=== PATIENT | male | born 1965 | race Caucasian/White ===

== ENCOUNTER 2020-12-10 13:07 | Outpatient (REF) | payer MEDICAID, SELFPAY ==
--- NOTE | ~2020-12-10 | US_ITS ---
EXAMINATION: ULTRASOUND EXTREMITY NONVASCULAR CLINICAL INFORMATION: Right lower quadrant pain. Assess inguinal canal hernia. COMPARISON: None TECHNIQUE: Grayscale and color imaging of the right inguinal region using a linear transducer. Valsalva maneuver was performed. FINDINGS: No hernia is seen. There is a small right inguinal lymph node. This is normal in size and demonstrates normal ultrasound morphology and flow. US/US extremity nonvascular IMPRESSION: No hernia seen
== END 2020-12-10 13:08 | disposition home or self-care (01) ==
LOC: HO.US 13:07
PROVIDERS: Visit Provider Emergency Medicine
DX: R10.31 Right lower quadrant pain (principal)
CPT/HCPCS: 76882

== ENCOUNTER 2023-04-12 12:42 | Outpatient (REF) | payer MEDICAID, SELFPAY ==
--- NOTE | ~2023-04-12 | XR_ITS ---
EXAMINATION: XR LUMBOSACRAL SPINE CLINICAL INFORMATION: Right leg pain COMPARISON: None available. TECHNIQUE: Three views of the lumbosacral spine. FINDINGS: Bone alignment is normal. No fracture or dislocation spaces are normal. Mild degenerative spondylosis at L3, L4-L5 and L5-S1. Mild lower lumbar spine facet arthritis. Atherosclerotic disease. XR/XR lumbar spine 2-3V IMPRESSION: Mild degenerative changes.
== END 2023-04-12 12:43 | disposition home or self-care (01) ==
LOC: HO.HHCX 12:42
PROVIDERS: Visit Provider Internal Medicine
DX: G57.01 Lesion of sciatic nerve, right lower limb (principal)
CPT/HCPCS: 72100

== ENCOUNTER 2023-05-05 09:06 | Outpatient (REF) | payer MEDICAID, SELFPAY ==
[2023-05-05 15:25] LABS: Alanine Aminotransferase 48 U/L (0-40); Albumin Level 4.5 g/dL (3.5-5.0); Alkaline Phosphatase 76 U/L (39-117); Anion Gap 12 (12-20); Aspartate Amino Transferase 30 U/L (5-37); Bilirubin Direct 0.2 mg/dL (0.0-0.5); Bilirubin Total 0.4 mg/dL (0.0-1.0); Blood Urea Nitrogen 14 mg/dL (9-16); Calcium 9.7 mg/dL (8.4-10.2); Carbon Dioxide 30 mmol/L (22-29); Chloride 107 mmol/L (96-108); Cholesterol 197 mg/dL (<200); Estimated Glomerular Filt Rate > 60; Glucose Fasting 98 mg/dL (60-99); HDL Cholesterol 36 mg/dL (>40); LDL Cholesterol Calculated 121 mg/dL (<100); Potassium 4.5 mmol/L (3.3-5.1); Sodium 144 mmol/L (135-145); Total Protein 7.6 g/dL (6.5-8.0); Triglycerides 202 mg/dL (<150)
[2023-05-05 15:27] LABS: Estimated Average Glucose 117 mg/dL; Hemoglobin A1c % 5.7 % (<6.0)
[2023-05-05 15:42] LABS: TSH reflex Free T4 1.16 uIU/mL (0.32-4.0)
== END 2023-05-05 09:07 | disposition home or self-care (01) ==
LOC: HO.CHCLDS 09:06
PROVIDERS: Visit Provider Internal Medicine
DX: R79.89 Other specified abnormal findings of blood chemistry (principal); R73.01 Impaired fasting glucose
CPT/HCPCS: 36415; 80048; 80061; 80076; 83036; 84443

== ENCOUNTER 2023-05-20 08:02 | Outpatient (REF) | payer MEDICAID, SELFPAY ==
--- NOTE | ~2023-05-20 | US_ITS ---
EXAMINATION: US ABDOMEN COMPLETE CLINICAL INFORMATION: Elevated LFTs. COMPARISON: CT abdomen and pelvis 04/20/2022. Ultrasound abdomen complete 04/06/2022. TECHNIQUE: Real-time imaging of the abdominal viscera. FINDINGS: PANCREAS: Normal. ABDOMINAL AORTA: The proximal, mid, and distal segments are normal in caliber. INFERIOR VENA CAVA: Visualized portions are normal. LIVER: Diffuse increased echogenicity to the liver parenchyma. No focal hepatic lesion. There is no intrahepatic biliary duct dilatation seen. GALLBLADDER: Multiple small nonmobile, nonshadowing gallbladder wall echogenicities. The gallbladder is physiologically distended containing fold. No evidence of stones, sludge, or pericholecystic fluid. Gallbladder wall measures 4 mm. COMMON BILE DUCT: Normal in caliber measuring 0.4 cm in diameter. RIGHT KIDNEY: Normal. No hydronephrosis. No renal calculi or focal parenchymal lesions. The kidney measures 10.4 cm in maximum dimension. LEFT KIDNEY: Normal. No hydronephrosis. No renal calculi or focal parenchymal lesions. The kidney measures 10.2 cm in maximum dimension. SPLEEN: Normal. The spleen measures 10.4 cm in maximum dimension. FREE FLUID: None. US/US abdomen complete IMPRESSION: Hepatic steatosis. Small gallbladder polyps.
== END 2023-05-20 08:03 | disposition home or self-care (01) ==
LOC: HO.HMGCX 08:02
PROVIDERS: PCP Internal Medicine; Visit Provider Internal Medicine
DX: R79.89 Other specified abnormal findings of blood chemistry (principal)
CPT/HCPCS: 76700

== ENCOUNTER 2024-01-25 11:23 | Outpatient (REF) | payer MEDICAID, SELFPAY ==
[2024-01-25 14:10] LABS: Appearance Urine Clear; Color Urine Yellow; Glucose Urine UA Negative (Negative); Leukocyte Esterase Urine Negative (Negative); Nitrite Urine Negative (Negative); Urine Blood Negative (Negative); Urine Ketones Negative (Negative); Urine Protein Negative (Neg-Trace)
[2024-01-25 14:17] LABS: Bacteria Urine None Seen (None Seen); Hyaline Casts Urine 0-2 /LPF (0-2); RBC Urine 0-2 /HPF (0-2); Squamous Epithelial Cell Urine 0-2 /HPF (0-2); WBC Urine 0-5 /HPF (0-5)
== END 2024-01-25 11:24 | disposition home or self-care (01) ==
LOC: HO.CHCLDS 11:23
PROVIDERS: Visit Provider Internal Medicine
DX: G57.01 Lesion of sciatic nerve, right lower limb (principal)
CPT/HCPCS: 81001

== ENCOUNTER 2024-02-03 08:12 | Outpatient (REF) | payer MEDICAID, SELFPAY ==
--- NOTE | ~2024-02-03 | US_ITS ---
EXAMINATION: US ABDOMEN COMPLETE CLINICAL INFORMATION: History of gallbladder polyp and hepatic steatosis. COMPARISON: None available. TECHNIQUE: Real-time imaging of the abdominal viscera. FINDINGS: PANCREAS: Normal. ABDOMINAL AORTA: Aortic atherosclerotic calcifications. INFERIOR VENA CAVA: Visualized portions are normal. LIVER: Normal. The liver is normal in size. The liver contour is normal. Parenchymal echogenicity is normal. No focal hepatic lesion. There is no intrahepatic biliary duct dilatation seen. GALLBLADDER: The gallbladder is physiologically distended without evidence of stones, sludge, wall thickening or pericholecystic fluid. Gallbladder polyps are seen measuring up to 2 mm. COMMON BILE DUCT: Normal in caliber measuring 0.4 cm in diameter. RIGHT KIDNEY: Normal. No hydronephrosis. No renal calculi or focal parenchymal lesions. The kidney measures 10.5 cm in maximum dimension. LEFT KIDNEY: Normal. No hydronephrosis. No renal calculi or focal parenchymal lesions. The kidney measures 10.7 cm in maximum dimension. SPLEEN: Normal. The spleen measures 10.5 cm in maximum dimension. FREE FLUID: None. US/US abdomen complete IMPRESSION: Gallbladder polyps measuring up to 2 mm. If patient has symptoms attributable to the gallbladder, cholecystectomy is suggested if there are no alternative causes for the symptoms and the patient is fit for and accepts surgery. If patient has no symptoms and risk factors are present or patient is symptomatic and cholecystectomy is deemed not appropriate, follow-up. Electronically signed by: Jasmyn Yañez MD 02/24/2024 01:49 PM EDT
--- NOTE | ~2024-02-03 | XR_ITS ---
EXAMINATION: XR ABDOMEN KUB CLINICAL INDICATION: Abdominal pain COMPARISON: None available. TECHNIQUE: AP view of the abdomen. FINDINGS: The bowel gas pattern is normal with no evidence of ileus or obstruction. No unusual soft tissue calcifications are noted. The bones are unremarkable. XR/XR KUB IMPRESSION: Unremarkable examination. Electronically signed by: Jasmyn Yañez MD 02/29/2024 07:55 PM EDT RP
== END 2024-02-03 08:13 | disposition home or self-care (01) ==
LOC: HO.US 08:12
PROVIDERS: PCP Internal Medicine; Visit Provider Internal Medicine
DX: K76.0 Fatty (change of) liver, not elsewhere classified (principal); K82.4 Cholesterolosis of gallbladder; R10.12 Left upper quadrant pain
CPT/HCPCS: 74018; 76700

== ENCOUNTER 2024-03-08 09:06 | Outpatient (REF) | payer MEDICAID, SELFPAY ==
[2024-03-08 14:13] LABS: MANUAL DIFF FLAG NO
[2024-03-08 14:33] LABS: Basophils Percent Auto 0.5 % (0-2); Eosinophils Absolute Auto 0.1 X10*3/uL (0.0-0.4); Eosinophils Percent Auto 2.1 % (0-4); Hematocrit 41.4 % (42.0-52.0); Hemoglobin 14.4 g/dl (14.0-18.0); Lymphocytes Absolute Auto 1.9 X10*3/uL (1.2-4.9); Lymphocytes Percent Auto 44.2 % (20-40); Mean Corpuscular HGB Conc 34.8 g/dl (31.0-36.0); Mean Corpuscular Volume 89.2 fL (80.0-98.0); Mean Platelet Volume 9.2 fL (9.4-12.4); Monocytes Absolute Auto 0.3 X10*3/uL (0.1-1.2); Monocytes Percent Auto 7.9 % (2-11); Neutrophils Absolute Auto 1.9 x10*3/uL (2.0-8.3); Neutrophils Percent Auto 45.3 % (45-73); Platelet Count 308 X10*3/uL (160-400); Red Blood Count 4.64 X10*6/uL (4.60-5.80); Red Cell Distribution Width 13.1 % (11.0-16.0); White Blood Count 4.2 X10*3/uL (4.8-10.8)
[2024-03-08 15:01] LABS: TSH reflex Free T4 1.27 uIU/mL (0.32-4.0)
[2024-03-08 15:04] LABS: C Reactive Protein < 0.10 mg/dL (< or = 0.50)
[2024-03-08 15:05] LABS: Erythrocyte Sedimentation Rate 2 MM/HR (0-15)
[2024-03-10 16:58] LABS: Immunoglobulin A 168 mg/dL (47-310); Transglutaminase IgA <1.0 U/mL
== END 2024-03-08 09:07 | disposition home or self-care (01) ==
LOC: HO.CHCLDS 09:06
PROVIDERS: Visit Provider Internal Medicine
DX: R63.4 Abnormal weight loss (principal)
CPT/HCPCS: 36415; 82784; 84443; 85025; 85652; 86140; 86364

== ENCOUNTER 2024-03-15 09:02 | Outpatient (REF) | payer MEDICAID, SELFPAY | END 2024-03-15 09:03 | disposition home or self-care (01) | LOC: HO.CHCLNP 09:02 | PROVIDERS: Visit Provider Internal Medicine | DX: R63.4 Abnormal weight loss (principal) | CPT/HCPCS: 87338 ==

== ENCOUNTER 2025-03-13 15:54 | Outpatient (REF) | payer MEDICAID, SELFPAY ==
--- OUTSIDE RECORDS SUMMARY | 2025-03-13 15:15 | XMS_ITS | Encounter Summary ---
Author Organization [employer] Address [address] [facility] 7[address] [place] [address] Care Team Providers Care Cage Cashier Name Role Phone Saurav Kay MD Primary Care Provider [phone]- [phone] Reason for Referral * Imaging (Routine) - Authorized Specialty Diagnoses / Procedures Referred By Contjerson peters Referred To Contact Radiology Diagnoses Gallbladder polyp RUQ pain Procedures US Abdomen Complete Jayden Hwang CNP [address] [place] [address] Phone: tel: fax: [address] Phone: tel: fax: Referral ID Status Reason Start Date Expiration Date V isits Requested Visits Authorized [id number] Authorized 03/13/2025 03/13/2026 1 1 Encounter Details Date Type Department Care Team (Late st Contact Info) Description 03/13/2025 3:15 PM EDT Office Visit [facility] MED & PEDS [address] [place] [address] Jayden Hwang CNP [address] [place] [address] Gallbladder polyp (Primary Dx); RUQ pain Social History Tobacco Use Types Packs/Day Years Used Date Smoking Tobacco: Never Passive Smoke Exposure: Never Smokeless Tobacco: Never Depression Answer Date Recorded Patient Health Questionnaire-9 Score 4 08/15/2024 Patient Health Questionnaire-9 Score 4 08/15/2024 Last PHQ-9: Questionnaire Data Not on file 0 08/15/2024 Housing Stability Answer Date Recorded What is your housing situation today? I have paul altamirano 08/15/[address] you li ve. Do you have problems with any of the following? None of the above 08/15/2024 Food Insecurity Answer Date Recorded Within the past 12 months, y ou worried that your food would run out before you got money to buy more: Never True 08/15/2024 Within the past 12 months,th e food you bought just didn't last and you didn't have enough money to get more: Never True Transportation Answer Date Recorded In the past 12 months, has l ack of transportation kept you from medical appts, meetings, work or from getting things needed for daily living? No 08/15/2024 Utilities Answer Date Recorded In the past 12 months, has t he electric, gas, oil or water company threatened to shut off services in your home? No 08/15/2024 Depression Answer Date Recorded Patient Health Questionnaire-2 Score 2 08/15/2024 Internet Access Answer Date Recorded Internet Access Q1 Yes 08/15/2024 Internet Access Q2 Not on file 08/15/2024 Sex and Gender Information Value Date Recorded Sex Assigned at Male 04/20/2022 10:22 AM EDT Legal Sex Male 10:22 AM EDT Gender Identity Choose not to disclose 10:22 AM EDT Sexual Orientation Choose not to disclose 2021 10:22 AM EDT documented as of this encounter Last Filed Vital Signs Vital Sign Reading Time Taken Comments Blood Pressure 136/84 03/13/2025 3:20 PM EDT Pulse 70 03/13/2025 3:20 PM EDT Temperature 36.7 C (98.1 F) 03/13/2025 3:20 PM EDT Respiratory Rate 14 03/13/2025 3:20 PM EDT Oxygen Saturation 99% 03/13/2025 3:20 PM EDT Inhaled Oxygen Concentration - - Weight 71.7 kg (158 lb) 03/13/2025 3:20 PM EDT Height 167.6 cm (5' 6 ) 03/13/2025 3:20 PM EDT Body Mass Index 25.5 03/13/2025 3:20 PM EDT documented in this encounter Progress Notes * Jayden Hwang CNP - 03/13/2025 3:15 PM EDT Hugh Valiente is a 60 y.o. adult who presents for a acute visit. HPI - Ongoing stomach pain, mainly in right upper quadrant, sometimes radiates from left to middle - Pain occurs if waiting 2-3 hours after breakfast to eat - Diarrhea present - History of polyps on gallbladder - History of fatty liver - Pain sometimes triggered by greasy or fatty foods - Denies bleeding with bowel movements - denies seeing GI for consult - Colonoscopy performed last year, result normal Interim History Pt JOSE 10/2024 with PCP pt diagnosed with polyp on gall bladder about 0.3 x0.2 x0.2 cm in size. Per PCP note plan to repeat US in 6 months. Pt was evaluated by [facility] general surgery 02/2024 in which they repeated US and referred pt to GI. Last colonoscopy 09/2024 which showed small internal hemorrhoids otherwise normal. Recommended 5 year f/u. Recent labs include neg celiac panel, neg H. Pylori 02/2024. Problem List[1] Allergies[2] Review of Systems Constitutional: Negative for chills, fatigue, fever and unexpected weight change. Gastrointestinal: Positive for abdominal pain and diarrhea. Negative for abdominal distention, analbleeding, blood in stool, constipation, nausea, rectal pain and vomiting. Genitourinary: Negative. Neurological: Negative for dizziness, tremors, seizures, syncope, facial asymmetry, speech difficulty, weakness, light-headedness, numbness and headaches. Vitals: 03/13/25 1520 BP: 136/84 BP Location: Left arm Patient Position: Sitting BP Cuff Size: Adult Pulse: 70 Resp: 14 Temp: 98.1 ??F (36.7 ??C) TempSrc: Oral SpO2: 99% Weight: 158 lb (71.7 kg) Height: 5' 6 (1.676 m) Physical Exam Constitutional: Appearance: Normal appearance. HENT: Head: Normocephalic and atraumatic. Cardiovascular: Rate and Rhythm: Normal rate and regular rhythm. Pulmonary: Effort: Pulmonary effort is normal. Breath sounds: Normal breath sounds. Abdominal: General: There is no distension. Palpations: There is no mass. Tenderness: There is no abdominal tenderness. There is no guarding or rebound. Hernia: No hernia is present. Neurological: Mental Status: Hugh is alert. Psychiatric: Mood and Affect: Mood normal. Behavior: Behavior normal. Problem List Items Addressed This Visit Gallbladder polyp - Primary Relevant Orders Comprehensive Metabolic Panel CBC auto differential Lipase US Abdomen Complete Other Visit Diagnoses RUQ pain Relevant Orders Comprehensive Metabolic Panel CBC auto differential Lipase US Abdomen Complete Assessment -benign abdominal exam - Gallbladder dysfunction - Fatty liver (hepatic steatosis) Plan - Repeat the ultrasound to evaluate any changes in the gallbladder polyps. - Order blood work to assess for infections, liver enzymes, and pancreas function. Complete the labwork today; fasting is not required. - Schedule the ultrasound appointment; the facility will contact to arrange this. - Call the patient with the results of the blood work and ultrasound to determine if further actionis needed. - Consider referral to a electrode cleaner if the ultrasound results indicate growth or other concerns with the gallbladder polyps. - Advise dietary modifications to include less greasy and less fatty foods to help alleviate symptoms. 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 as directed, Disp: 30 tablet, Rfl: 11 hydrOXYzine pamoate (Vistaril) 25 MG capsule, Take 1 capsule (25 mg) by mouth every 6 (six) hours if needed for itching. 1 to 2 capsule at bedtime., Disp: 40 capsule, Rfl: 2 sildenafil (Viagra) 25 MG tablet, Take 1 tablet (25 mg) by mouth if needed each day for erectile dysfunction., Disp: 10 tablet, Rfl: 0 documented in this encounter Plan of Treatment Upcoming Encounters Date Type Department Care Team (Late st Contact Info) Description 05/21/2025 9:00 AM EST Office Visit [facility] CHC MED & PEDS [address] [place] [address] Saurav Kay MD [address] [place] [address] Scheduled Orders Name Type Priority Associated Diagnoses Orde r Schedule Comprehensive Metabolic Panel Lab Routine Gallbladder polyp RUQ pain Expected: 03/13/2025 (Approximate), Expires: 03/13/2026 CBC auto differential Lab Routine Gallbladder polyp RUQ pain Expected: 03/13/2025 (Approximate), Expires: 03/13/2026 Lipase Lab Routine Gallbladder polyp RUQ pain Expected: 03/13/2025, Expires: 03/13/2026 US Abdomen Complete Imaging Routine Gallbladder polyp RUQ pain Expected: 03/13/2025, Expires: 03/13/2026 documented as of this encounter Visit Diagnoses Diagnosis Gallbladder polyp- Primary Cholesterolosis of gallbladder RUQ pain Abdominal pain, right upper quadrant documented in this encounter Additional Health Concerns Assessment Noted Time PHQ-9 Depression Total Score: 4 08/15/19 25 9:14 AM EST documented as of this encounter Care Teams Cage Cashier Relationship Specialty Start Date End Date Saurav Kay MD [address] [place] [address] PCP - General Internal Medicine 06/21/18 documented as of this encounter
[2025-03-13 18:30] LABS: MANUAL DIFF FLAG NO
--- OUTSIDE RECORDS SUMMARY | 2025-03-13 18:30 | XMS_ITS | Encounter Summary ---
Author Organization [employer] Address [address] [place] [address] Care Team Providers Care District Court Judge Name Role Phone Saurav Kay MD Primary Care Provider [phone]- [phone] Encounter Details Date Type Department Care Team (Late st Contact Info) Description 09/21/2024 Orders Only [facility] CHC MED & PEDS [address] [place], [place] [id number] Provider, MD Radha Social History Tobacco Use Types Packs/Day Years [...] AM EDT documented as of this encounter Plan of Treatment Upcoming Encounters Date Type Department Care Team (Late st Contact Info) Description 05/21/2025 9:00 AM EST Office Visit [facility] MED & PEDS [address] [place] [address] Saurav Kay MD [address] [place] [address] documented as of this encounter Procedures Procedure Name Priority Date/Time Associated Diagnosis Comments HM COLONOSCOPY Routine 09/21/2024 12:11 PM EDT documented in this encounter Results * Hm Colonoscopy (09/21/2024 12:11 PM EDT) Historical Provider HEALTH MAINTENANCE Final Result documented in this encounter Visit Diagnoses Not on filedocumented in this encounter Additional Health Concerns Assessment Noted Time PHQ-9 Depression Total Score: 4 08/15/19 25 9:14 AM EST documented as of this encounter Care Teams District Court Judge Relationship Specialty Start Date End Date Saurav Kay MD [address] [place] [address] PCP - General Internal Medicine 06/21/18 documented as of this encounter
--- OUTSIDE RECORDS SUMMARY | 2025-03-13 18:30 | XMS_ITS | Encounter Summary ---
Author Organization [employer] Address [address] [facility] [address]t [place] [address] Care Team Providers Care Base Filler Name Role Phone Saurav Kay MD Primary Care Provider [phone]- [phone] Reason for Referral * Consultation (Routine) - Closed Specialty Diagnoses / Procedures Referred By Contac t Referred To Contact General Surgery Diagnoses Gallbladder polyp Saurav Kay MD [address] [place] [address] Phone: tel: fax: [facility] Surgery [address] [place] [phone] Phone: tel: fax: Referral ID Status Reason Start Date Expiration Date V isits Requested Visits Authorized [id number] Closed Specialty Services Required 2024 02/24/2025 1 1 Encounter Details Date Type Department Care Team ([facility] st Contact Info) Description 2024 Orders Only [facility] CHC MED & PEDS [address] [place] [address] Saurav Kay MD [address] [place] [address] Gallbladder polyp (Primary Dx) Social History Tobacco Use Types Packs/Day Years Used Date Smoking Tobacco: Never Passive Smoke Exposure: Never Smokeless Tobacco: Never Sex and Gender Information Value Date Recorded Sex Assigned at Male 04/20/2022 10:22 AM EDT Legal Sex Male 10:22 AM EDT Gender Identity Choose not to disclose 10:22 AM EDT Sexual Orientation Choose not to disclose 10/31/ 2022 10:22 AM EDT documented as of this encounter Plan of Treatment Upcoming Encounters Date Type Department Care Team (Late st Contact Info) Description 05/21/2025 9:00 AM EST Office Visit [facility] CHC MED & PEDS [address] [place] [address] Saurav Kay MD [address] [place] [address] Scheduled Referrals Name Type Priority Associated Diagnoses Orde r Schedule Referral to General Surgery Outpatient Referral Routine Gallbladder polyp Expected: 2024 (Approximate), Expires: 02/24/2025 documented as of this encounter Visit Diagnoses Diagnosis Gallbladder polyp- Primary Cholesterolosis of gallbladder documented in this encounter Care Teams Base Filler Relationship Specialty Start Date End Date Saurav Kay MD [address] [place] [address] PCP - General Internal Medicine 06/21/18 documented as of this encounter
--- OUTSIDE RECORDS SUMMARY | 2025-03-13 18:30 | XMS_ITS | Encounter Summary ---
Author Organization [employer] Address [address] [facility] [address] [place] [address] Care Team Providers Care Infection Control Manager Name Role Phone Saurav Kay MD Primary Care Provider [phone]- [phone] Reason for Visit * Reason Onset Date Comments chart prep 03/13/2025 Encounter Details Date Type Department Care Team ([facility] st Contact Info) Description 03/13/2025 Telephone C [facility] MED & PEDS [address] [place], [place] [phone] Saurav Kay MD [address] [place] [address] chart prep Social History Tobacco Use Types Packs/Day Years [...] AM EDT documented as of this encounter Miscellaneous Notes * Telephone Encounter - Day Esquivel [place] - 03/13/2025 8:39 AM EDT Chart Prep Labs: not applicable Images: not applicable Referrals: not applicable Vaccines due: Flu and PCV20 Screenings: STI screening Overdue care gaps: Disability screen documented in this encounter Plan of Treatment Upcoming Encounters Date Type Department Care Team (Late st Contact Info) Description 05/21/2025 9:00 AM EST Office Visit [facility] CHC MED & PEDS [address] [place] [address] Saurav Kay MD [address] [place] [address] documented as of this encounter Visit Diagnoses Not on filedocumented in this encounter Additional Health Concerns Assessment Noted Time PHQ-9 Depression Total Score: 4 08/15/19 9:14 AM EST documented as of this encounter Care Teams Infection Control Manager Relationship Specialty Start Date End Date Saurav Kay MD [address] [place] [address] PCP - General Internal Medicine 06/21/18 documented as of this encounter
--- OUTSIDE RECORDS SUMMARY | 2025-03-13 18:30 | XMS_ITS | Encounter Summary ---
Author Organization [employer] Address [address] [place] [address] Care Team Providers Care Water Taxi Driver Name Role Phone Saurav Kay MD Primary Care Provider [phone]- [phone] Encounter Details Date Type Department Care Team (Latest Contact Info) Description 03/13/2025 Travel Social History Tobacco Use Types Packs/Day Years [...] Upcoming Encounters Date Type Department Care Team ([facility] st Contact Info) Description 05/21/2025 9:00 AM EST Office Visit [facility] MED & PEDS [address] [place] [address] Saurav Kay MD [address] [place] [address] documented as of this encounter Visit Diagnoses Not on filedocumented in this encounter Additional Health Concerns Assessment Noted Time PHQ-9 Depression Total Score: 4 08/15/19 25 9:14 AM EST documented as of this encounter Care Teams Water Taxi Driver Relationship Specialty Start Date End Date Saurav Kay MD [address] [place] [address] PCP - General Internal Medicine 06/21/18 documented as of this encounter
--- OUTSIDE RECORDS SUMMARY | 2025-03-13 18:30 | XMS_ITS | Clinical Summary ---
Author Organization [facility] Address [address] [place] [address] Care Team Providers Care Assistant Curator Name Role Phone Unavailable Primary Care Provider Unavailabl e Social History Tobacco Use Types Packs/Day Years Used Date Smoking Tobacco: Never Assessed Sex and Gender Information Value Date Recorded Sex Assigned at Not on file Legal Sex Male 3:32 PM EST Gender Identity Not on file Sexual Orientation Not on file Plan of Treatment Health Maintenance Due Date Last Done Comments DTaP,Tdap,and Td Vaccines (1 - Tdap) 02/26/1984 Pneumococcal Vaccine: 50+ Ye ars (1 of 1 - PCV) 2015 Zoster Vaccines (1 of 2) 2015 Depression Screening 06/21/2024 COVID-19 Vaccine (1 - 2023-2 5 season) 2025 Influenza Vaccine (#1) 2025 RSV Immunization Adult Patie nts (1 - 1-dose 75+ series) 02/26/2040 HIB Vaccines Aged Out No longer eligi ble based on patient's age to complete this topic HPV Vaccines Aged Out No longer eligi ble based on patient's age to complete this topic Hepatitis A Vaccines Aged Out No long er eligible based on patient's age to complete this topic Hepatitis B Vaccines Aged Out No long er eligible based on patient's age to complete this topic IPV Vaccines Aged Out No longer eligi ble based on patient's age to complete this topic MMR Vaccines Aged Out No longer eligi ble based on patient's age to complete this topic Meningococcal ACWY Vaccine Aged Out N o longer eligible based on patient's age to complete this topic Meningococcal B Vaccine Aged Out No l onger eligible based on patient's age to complete this topic RSV Immunization Patients Un nicholas 20 months Aged Out No longer eligible b ased on patient's age to complete this topic Varicella Vaccines Aged Out No longer eligible based on patient's age to complete this topic
--- OUTSIDE RECORDS SUMMARY | 2025-03-13 18:30 | XMS_ITS | Clinical Summary ---
Author Organization [facility] Address [address] [place] [address] Phone Care Team Providers Care Gate Keeper Name Role Phone Saurav Kay MD Primary Care Pr ovider Pascual Rasheed MD Unavailable [phone] Allergies Active Allergy Reactions Criticality Noted Date Comments Morphine 12/21/2018 Medications gabapentin (NEURONTIN) 800 MG tablet Take 800 mg by mouth 3 (three) times a day. 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 Generally doing well, but remains mostly at home d/t chronic left knee pain. Cannot walk much due to ongoing knee and lower leg pain and weakness. Denies numbness/tingling in left lower extremity. inquires about osteomyelitis and possibility of recurrence. Inquires about need for blood work for infection/recurrence. Reviewed and discussed PROMs ([facility] [employer]) survey. Physical score was 32.4, less than norm (45). Mental score at 41.1, less than the norm (45). Correlates to limited mobility and effects of pain on QoL Ordered specific patella views d/t complaints of pain. Reviewed x-rays of left femur and left knee from today. No evidence of recurrent disease. Left femur demonstrates distal resection and placement of long metal spacer in combination with total hinged left knee replacement. No fracture, dislocation. No definite evidence for hardware loosening. No substantial joint effusion. Reviewed blood work from August 2017, that showed normal ESR, CRP and CBC. No sign of infection. Repeat blood work not warranted. Explained that he is considered cured from his sarcoma, given he is s/p 25 years from index resection. Discussed extensively signs/symptoms of recurrence and/or implant loosening/complications. X-rays will be monitored for implant integrity and alignment. Reviewed signs and symptoms that would warrant an urgent visit. Counseled in detail on potential etiologies of lumps including lymphadenopathy, benign/malignant tumors, etc. Suggested to walk around and avoid prolonged periods of immobilization, as it will increase stiffness and contribute to knee pain. Recommended PT for strengthening of left lower extremity. Discussed possible surgical intervention left knee if pain persists after physical therapy Return to clinic in 3 months with new x-rays to evaluate effectiveness of physical therapy. Advised to call in case of further questions/concerns. Social History Tobacco Use Types Packs/Day Years Used Date Smoking Tobacco: Never Smokeless Tobacco: Never Education Answer Date Recorded Are you interested in more education? Not on hazel e 10/15/2022 Are you concerned about learning? Not on file 10/15/2022 No 10/15/2022 No 10/15/2022 Digital Access Answer Date Recorded No 11/16/2022 No 11/16/2022 No 11/16/2022 Reliable internet access at home? Not on file 11/16/2022 Device with a working camera? Not on file Sex and Gender Information Value Date Recorded Sex Assigned at Not on file Legal Sex Male 7:12 PM EST Gender Identity Not on file Sexual Orientation Not on file Last Filed Vital Signs Vital Sign Reading Time Taken Comments Blood Pressure 124/81 10/05/2018 11:23 AM EDT Pulse 65 10/05/2018 11:23 AM EDT Temperature 36.8 C (98.3 F) 10/05/2018 11:23 AM EDT Respiratory Rate - - Oxygen Saturation 95% 10/05/2018 11:23 AM EDT Inhaled Oxygen Concentration - - Weight 70.3 kg (155 lb) 12/21/2018 12:40 PM EDT Height 167.6 cm (5' 6 ) 12/21/2018 12:40 PM EDT Body Mass Index 25.02 12/21/2018 12:40 PM EDT Plan of Treatment Health Maintenance Due Date Last Done Comments Adult Td,Tdap Booster 1965 LIPID PANEL 1965 DEPRESSION SCREENING 1977 HEPATITIS C SCREENING 1983 HIV ONE-TIME SCREENING (18-6 5 YEARS) 1983 PNEUMOCOCCAL VACCINES (50+ y ears) (1 of 2 - PCV) 02/26/1984 ZOSTER VACCINES (1 of 2) 02/26/1984 COLOGUARD 2010 COLONOSCOPY 2010 COLORECTAL CANCER SCREENING 2010 FIT TEST 2010 FOBT 2010 SIGMOIDOSCOPY 2010 VIRTUAL COLONOSCOPY 2010 INFLUENZA VACCINE (#1) 2025 COVID-19 VACCINE ( - 2023-2 5 season) 2025 RSV VACCINE (1 - 1-dose 75+ series) 02/26/2040 SMOKING STATUS SCREENING (On ce After 26 Yrs) Completed 12/21/2018 HEPATITIS A VACCINES Aged Out No long er eligible based on patient's age to complete this topic HIB VACCINES Aged Out No longer eligi ble based on patient's age to complete this topic MENINGOCOCCAL VACCINES (ACWY) Aged Out No longer eligible based on patient's age to complete this topic MENINGOCOCCAL VACCINES (B) Aged Out N o longer eligible based on patient's age to complete this topic Medical Devices Not on file Insurance C3 ACO C3 ACO C3 ACO C3 ACO C3 ACO C3 ACO C3 ACO C3 ACO C3 ACO Care Teams Gate Keeper Relationship Specialty Start Date End Date Saurav Kay MD PCP - General 12/19/13 Pascual Rasheed MD [address] [place] [id number] [email or web address] Orthopedic Surgeon Orthopedic Surgery 04/06/19 Additional Source Comments The information contained in this document represents components of the legal health record. It is not the complete legal health record.[facility]
--- OUTSIDE RECORDS SUMMARY | 2025-03-13 18:30 | XMS_ITS | Clinical Summary ---
Author Organization [employer] Address [address] [facility] [address] [place] [address] Care Team Providers Care Medical Billing Assistant Name Role Phone Saurav Kay MD Primary Care Provider Allergies Active Allergy Reactions Criticality Noted Date Comments Morphine 02/16/2012 Other reaction(s): Not Indicated Medications Diclofenac Sodium 1 % gelIndications:P ain in rib To apply to the affected area 3 times a day 100 g 3 Active gabapentin (Neurontin) 800 MG tabletIndication s:Chronic pain syndrome Take 1 tablet (800 mg) by mouth Once per day. as directed 30 tablet 11 4 05/05/20 25 Active hydrOXYzine pamoate (Vistaril) 25 MG capsuleIndicatio ns:Anxiety Take 1 capsule (25 mg) by mouth every 6 (six) hours if needed for itching. 1 to 2 capsule at bedtime. 40 capsule 2 4 Active sildenafil (Viagra) 25 MG tabletIndication s:Other male erectile dysfunction Take 1 tablet (25 mg) by mouth if needed each day for erectile dysfunction. 10 tablet 5 Active celecoxib (CeleBREX) 200 MG capsuleIndicatio ns:Penis pain TAKE 1 CAPSULE BY MOUTH 2 TIMES DAILY. 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 FU BP with RN in 4w Pyriformis syndrome, right 04/12/2023 Assessment & Plan (04/12/2023 12:11 PM EDT): Recommended stretching exercises, heat pad to affected area and gave him info re PT appt. DC naproxen and start Meloxicam dialy x 2w + Tylenol prn breakthrough pain. 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 Generally doing well, [...] to call in case of further questions/concerns. Encounters Date Type Department Care Team Description 03/13/2025 3:15 PM EDT Office Visit [facility] [address] [place] [address] Jayden Hwang CNP Gallbladder polyp (Primary Dx); RUQ pain 03/13/2025 Travel 03/13/2025 Telephone [facility] [address] [place], [place] [phone] Saurav Kay MD chart prep from Last 3 Months Immunizations Immunization Administration Dates Next Due Influenza Injectable Quadriv alant Preservative Free IIV4 MDCK 03/18/2019,06/02/2017 Influenza injectable quadriv alent IIV4 with preservative 04/18/2018,04/16/2016 Influenza injectable quadriv alent preservative free 04/08/2022,05/23/2021,03/30/2020,2014 Influenza, IIV3, injectable 04/21/2014 Influenza, Split (incl. jordy fied surface antigen) 03/30/2013 Influenza, seasonal, injecta ble, preservative free 06/09/2024 Moderna Covid-19 Vaccine 6+ Bivalent 09/18/2022 Pfizer Covid-19 Vaccine 12+ 08/18/2023 Tdap 04/16/2016 Zoster, Recombinant 03/19/2022,12/12/2021 Social History Tobacco Use Types Packs/Day Years Used Date Smoking Tobacco: Never Passive Smoke Exposure: Never Smokeless Tobacco: Never Tobacco Cessation:Counseling Given: Not Answered Depression Answer Date Recorded Patient Health Questionnaire-9 [...] not to disclose 2021 10:22 AM EDT Last Filed Vital Signs Vital Sign Reading [...] Mass Index 25.5 03/13/2025 3:20 PM EDT Plan of Treatment Upcoming Encounters Date Type Department Care Team ([facility] st Contact Info) Description 05/21/2025 9:00 AM EST Office Visit [facility] [address] [place] [address] Saurav Kay MD [address] [place] [address] Health Maintenance Due Date Last Done Comments CT Colonography 1965 FIT DNA/Cologuard 1965 FIT 1965 FOBT 1965 HIV Screening 1965 Sigmoidoscopy 1965 Disability Screening 1965 Pneumococcal Vaccine: 50+ Years (1 of 1 - PCV) 2015 COVID-19 Vaccine ( season) 2025 08/18/2023, 09/18/2022, 09/25/2021, Additional history exists Influenza Vaccine (#1) 2025 , 04/08/2022, 05/23/2021, Additional history exists Depression Screening 08/15/2025 08/15/2024, 08/15/19 Alcohol/Substance Use Screening 11/14/2025 11/14/2024 SDOH Screening 11/14/2025 11/14/2024 Tobacco Screening 11/14/2025 11/14/2024 DTaP/Tdap/Td Vaccines (2 - Td or Tdap) 04/16/2026 04/16/2016 Lipid Panel 05/05/2028 05/05/2023, 03/23/2022 Colonoscopy 09/21/2029 09/21/2024, 02/11/2015 Colorectal Cancer Screening 09/21/2029 RSV Patients and Patients Aged 60 years or older (1 - 1-dose 75+ series) 02/26/2040 Zoster Vaccines Completed 03/19/2022, 12/12/2021 Hepatitis C Screening Completed 03/27/2022 HIB Vaccines Aged Out No longer eligi [...] patient's age to complete this topic Meningococcal Vaccine Aged Out No francisco javier obdulia eligible based on patient's age to complete this topic RSV under 20 months Aged Out No longe r eligible based on patient's age to complete this topic Rotavirus Vaccines Aged Out No longer eligible based on patient's age to complete this topic Procedures Procedure Name Priority Date/Time Associated Diagnosis Comments COLONOSCOPY Routine 09/21/2024 12:11 PM EDT LIPID PANEL, STANDARD Routine 05/05/2023 9:09 AM EST Abnormal liver function test ZZZ HISTORICAL HEPATITIS C AB W/REFL TO HCV RNA, QN, PCR Routine 03/27/2022 9:37 AM EDT from Last 3 Months or Most Recently Relevant to Health Maintenance Results * Colonoscopy (09/21/2024 12:11 PM EDT) us Historical Provider HEALTH MAINTENANCE Final Result * (ABNORMAL) Lipid Panel, Standard (05/05/2023 9:09 AM EST) Triglycerides 202(H) <150 mg/dL [facility] Comment:Desirable Triglyceri de: less than 150 mg/dLBorderline High Triglyceride 150-199 mg/dLHigh Triglyceride: 200-499 mg/dLVery High Triglyceride: greater than or equal to 5OO mg/dL Cholesterol 197 <200 mg/dL [facility] Comment:Desirable Cholestero l: less than 200 mg/dLBorderline High Cholesterol: 200-239 mg/dLHigh Cholesterol: greater than 239 mg/dL LDL Cholesterol Calculated 121(H) <100 mg/dL [facility] Comment:Desirable LDL: less than 100 mg/dLNear Optimal/Above Optimal LDL: 110- 129 mg/dLBorderline High LDL: 130-159 mg/dLHigh LDL: 160-189 mg/dLVery High LDL: greater than or equal to 190 mg/dL HDL Cholesterol 36(L) >40 mg/dL [facility] Comment:Desirable HDL: great er than 40 mg/dL Note: This HDL assay may give artificially low results in patients with liver disease. Blood Venous blood specimen / Unknown 05/05/2023 9:09 AM EST 05/05/2023 2:59 PM EST us Saurav Kay MD LAB BLOOD ORDERABLES Final Result [facility] [address] [place] [address] [phone] * HEPATITIS C AB W/REFL TO HCV RNA, QN, PCR (03/27/2022 9:37 AM EDT) HEPATITIS C ANTIBODY NON-REACTI VE NON-REACT FRED [facility] INDEX 0.10 <1.00 [facility] Comment: HCV antibody was non-reactive. There is no laboratory evidence of HCV infection. In most cases, no further action is required. However, if recent HCV exposure is suspected, a test for HCV RNA (test code 88865) is suggested. For additional information please refer to http://education.[employer]/faq/ZQO14j5 (This link is being provided for informational/ educational purposes only.) 03/27/2022 9:37 AM EDT us Saurav Kay MD HISTORICAL/NON ORDERABLE LA BS Final Result [facility] from Last 3 Months or Most Recently Relevant to Health Maintenance [place] [address] [place] [address] C3 Care Teams Medical Billing Assistant Relationship Specialty Start Date End Date Saurav Kay MD [address] [place] [address] [place] [address] PCP - General Internal Medicine 06/21/18
--- OUTSIDE RECORDS SUMMARY | 2025-03-13 18:30 | XMS_ITS | Encounter Summary ---
Author Organization [employer] [facility] Address [address] [facility] [address] [place] [address] Care Team Providers Care Drilling Fluids Specialist Name Role Phone Saurav Kay MD Primary Care Provider [phone] Encounter Details Date Type Department Care Team (Late Contact Info) Description 04/19/2023 Abstract [facility] [address] [place], [place] [phone] Saurav Kay MD [address] [place], [place] [phone] Social History Tobacco Use Types Packs/Day Years [...] Description 05/21/2025 9:00 AM EST Office Visit [facility] [address] [place] [address] Saurav Kay MD [address] [place] [address] documented as of this encounter Procedures Procedure Name Priority Date/Time Associated Diagnosis Comments COLONOSCOPY Routine 02/11/2015 documented in this encounter Results * Colonoscopy (02/11/2015) Colonoscopy Normal Normal Narrative Mayra Cochran - 02/11/2015 Recommended 5 year follow up us Historical Provider HEALTH MAINTENANCE Final Result documented in this encounter Visit Diagnoses Not on filedocumented in this encounter Care Teams Drilling Fluids Specialist Relationship Specialty Start Date End Date Saurav Kay MD [address] [place] [id number] PCP - General Internal Medicine 06/21/18 documented as of this encounter
--- OUTSIDE RECORDS SUMMARY | 2025-03-13 18:30 | XMS_ITS | Encounter Summary ---
Author Organization [facility] Address [address] [facility] 7[address] [place] [address] Care Team Providers Care Cord Splicer Name Role Phone Saurav Kay MD Primary Care Provider Encounter Details Date Type Department Care Team (Late st Contact Info) Description 01/26/2024 Orders Only [facility] [address] [place] [address] Hesham Long MD [address] [place] [address] Social History Tobacco Use Types Packs/Day Years [...] Description 05/21/2025 9:00 AM EST Office Visit [facility] [address] [place] [address] Saurav Kay MD [address] [place] [address] documented as of this encounter Visit Diagnoses Not on filedocumented in this encounter Care Teams Cord Splicer Relationship Specialty Start Date End Date Saurav Kay MD [address] [place] [address] PCP - General Internal Medicine 06/21/18 documented as of this encounter
[2025-03-13 18:44] LABS: Hematocrit 42.0 % (42.0-52.0); Hemoglobin 14.3 g/dl (14.0-18.0); Imm Gran Abs Auto 0.01 X10*3/uL (0.00-0.03); Imm Gran Pct Auto 0.2 % (0.0-0.4); Lymphocytes Absolute Auto 2.2 X10*3/uL (1.2-4.9); Mean Corpuscular HGB Conc 34.0 g/dl (31.0-36.0); Mean Corpuscular Hemoglobin 30.3 pg (27.0-33.0); Mean Corpuscular Volume 89.0 fL (80.0-98.0); NRBC Abs Auto 0.000 X10*3/uL (0.0-0.012); NRBC Pct Auto 0.0 /100WBC (0.0-0.2); Platelet Count 347 X10*3/uL (160-400); Red Blood Count 4.72 X10*6/uL (4.60-5.80); White Blood Count 6.4 X10*3/uL (4.8-10.8)
[2025-03-13 19:05] LABS: Alanine Aminotransferase 27 U/L (0-40); Albumin Level 4.8 g/dL (3.5-5.0); Alkaline Phosphatase 71 U/L (39-117); Anion Gap 11 (12-20); Aspartate Amino Transferase 29 U/L (5-37); Blood Urea Nitrogen 11 mg/dL (9-16); Calcium 9.8 mg/dL (8.4-10.2); Carbon Dioxide 28 mmol/L (22-29); Chloride 105 mmol/L (96-108); Estimated Glomerular Filt Rate > 60; Lipase 22 U/L (8-78); Potassium 3.9 mmol/L (3.3-5.1); Sodium 140 mmol/L (135-145); Total Protein 7.6 g/dL (6.5-8.0)
== END 2025-03-13 15:55 | disposition home or self-care (01) ==
LOC: HO.CHCLDS 15:54
DX: R10.11 Right upper quadrant pain (principal); K82.4 Cholesterolosis of gallbladder
CPT/HCPCS: 36415; 80053; 83690; 85025

== ENCOUNTER 2025-05-09 08:10 | Outpatient (REF) | payer MEDICAID, SELFPAY ==
--- NOTE | ~2025-05-09 | US_ITS ---
CLINICAL HISTORY: historical gall bladder polyp 0.3x0.2x0.2cm in size US abdomen limited Comparison: 02/03/2024 Findings: Fatty infiltration of the liver without focal abnormality. Right lobe 14.3 cm length. Main portal vein patent with antegrade flow. Visualized pancreas unremarkable. Gallbladder unremarkable without stones. Common duct 3.3 mm. No wall thickening. Right kidney normal, 10.6 cm in length. Impression: Fatty infiltration of the liver Otherwise unremarkable This document has been electronically signed by: Lonny iLu MD on 05/09/2025 19:44:59
== END 2025-05-09 08:11 | disposition home or self-care (01) ==
LOC: HO.HMGCX 08:10
PROVIDERS: PCP Internal Medicine
DX: K82.4 Cholesterolosis of gallbladder (principal); R10.11 Right upper quadrant pain
CPT/HCPCS: 76705

== ENCOUNTER → 2025-05-09 08:12 | Outpatient (BNV) | payer MEDICAID, SELFPAY | PROVIDERS: PCP Internal Medicine; Visit Provider Radiology Diagnostic Radiology | DX: K76.0 Fatty (change of) liver, not elsewhere classified (principal) | CPT/HCPCS: 76705 ==